=== PATIENT | male | born 1985 | race African-American/Black ===

== ENCOUNTER 2021-10-13 01:09 | Emergency (ER) | payer BC ==
[~2021-10-13] VITALS: Ht 185.4 cm; Wt 74.8 kg
[2021-10-13 01:14] VITALS: BP 140/77
--- NOTE | 2021-10-13 01:14 | NUR ---
TO BED AMBULATORY
--- NOTE | 2021-10-13 01:18 | NUR ---
[facility] in [facility] - 10/13/21 at 0118 by EMILY PT TAKEN TO BED 11
--- NOTE | 2021-10-13 01:19 | NUR ---
Dr. John examining patient.
[2021-10-13] MEDS ORDERED: ALBUTEROL SULFATE/IPRATROPIU 3 ML SOL IH ONE (01:30)
--- NOTE | 2021-10-13 01:31 | NUR ---
X-Ray at bedside.
--- NOTE | 2021-10-13 01:40 | NUR ---
Respiratory Therapist at bedside for respiratory intervention.
--- NOTE | 2021-10-13 01:43 | NUR ---
CHRISTOPHER WALKED OVER TO LAB AT THIS TIME
[2021-10-13] MEDS ORDERED: BENZ100C6 PO (02:27)
[2021-10-13] MEDS ORDERED: ALBU117P INH ×2 (02:27→10:50)
[2021-10-13] MEDS ORDERED: FLUT1DSK2 IH (02:27)
--- NOTE | 2021-10-13 02:32 | NUR ---
PATIENT CLEARED FOR DISHCARGE AT THIS TIME. ADVISED TO FOLLOW UP WITH PCP AND RETURN IF CODNITON WORSENS. NO OTHER COMPLAINTS OR CONCERNS AT THIS TIME FOLLOWINGF CRISTHIANHSAGNIESZKA MCCOYCREEING.
[2021-10-13 02:33] VITALS: BP 140/77
[2021-10-13] MEDS ORDERED: PRED20TA5 PO (10:50)
[2021-10-13] MEDS ORDERED: FLUT1DSK IH (10:50)
[2021-10-13] MEDS ORDERED: FLUT1POW3 IH (11:19)
[2021-10-14] MEDS ORDERED: BUPR-51 PO (03:45)
[2021-10-14] MEDS ORDERED: ALBU0.0912 IH (03:45)
[2021-10-14] MEDS ORDERED: ESCI20TA PO (03:45)
== END 2021-10-13 02:33 | disposition home or self-care (01) ==
LOC: MED 01:09
DX: J45.901 Unspecified asthma with (acute) exacerbation (principal); Z20.822 Contact with and (suspected) exposure to COVID-19; Z79.899 Other long term (current) drug therapy
CPT/HCPCS: 71045; 87426; 94640; 99284; Q0092

== ENCOUNTER 2021-10-13 10:36 | Emergency (ER) | payer BC ==
[~2021-10-13] VITALS: Ht 188 cm; Wt 64.9 kg
[~2021-10-13 10:36] MED LIST: ALBU117P INH; BENZ100C6 PO; FLUT1DSK2 IH
[2021-10-13 10:38] VITALS: BP 151/94
--- NOTE | 2021-10-13 10:38 | NUR ---
35 y/o Male BIB self for c/o SOB. Was here yesterday for the same issue and has been unable to refill his RX. Resp even and unlabored, wheezing noted upon auscultation. AOX4, able to make needs known. Denies N/V/D/CP. PmHx: Depression, asthma Home meds: Lexapro/wellbutrin, advair, albuterol
--- NOTE | 2021-10-13 10:40 | NUR ---
FRANCI Adames in triage to assess pt at this time
[2021-10-13] MEDS ORDERED: PRED20TA5 PO (10:50)
[2021-10-13] MEDS ORDERED: ALBUTEROL SULFATE/IPRATROPIU 3 ML SOL IH ONE ×2 (10:50→11:10)
[2021-10-13] MEDS ORDERED: FLUT1DSK IH (10:50)
[2021-10-13] MEDS ORDERED: predniSONE 20 MG TAB PO ONE (10:50)
[2021-10-13] MEDS ORDERED: ALBU117P INH (10:50)
--- NOTE | 2021-10-13 10:54 | NUR ---
RT BEDSIDE PROVIDING BREATHING TX
--- NOTE | 2021-10-13 10:54 | NUR ---
RT with pt to assess and give breathing tx.
[2021-10-13] MEDS ORDERED: FLUT1POW3 IH (11:19)
[2021-10-13 11:30] VITALS: BP 151/94
--- NOTE | 2021-10-13 11:30 | NUR ---
Patient discharged with v/s stable. Written and verbal after care instructions given and explained. Patient alert, oriented and verbalized understanding of instructions. Ambulatory with steady gait. All questions addressed prior to discharge. ID band removed. Patient advised to follow up with PMD. Rx of ALBUTEROL, ADVAIR, FLUTICASONE/VILANTEROL, AND PREDNISONE given. Patient educated on indication of medication including possible reaction and side effects. Opportunity to ask questions provided and answered.
[2021-10-14] MEDS ORDERED: ALBU0.0912 IH (03:45)
[2021-10-14] MEDS ORDERED: BUPR-51 PO (03:45)
[2021-10-14] MEDS ORDERED: ESCI20TA PO (03:45)
== END 2021-10-13 11:30 | disposition home or self-care (01) ==
LOC: MED 10:36
DX: J45.901 Unspecified asthma with (acute) exacerbation (principal); Z79.899 Other long term (current) drug therapy
CPT/HCPCS: 94640; 99284; J7512

== ENCOUNTER 2021-10-14 00:30 | Inpatient (IN) | payer BC, SELFPAY ==
[~2021-10-14] VITALS: Ht 185.4 cm; Wt 72.6 kg
[2021-10-14] MEDS: LEVALBUTEROL 1.25 MG/0.5 ML NEBU INH SCH ×3 (00:25→20:04)
[2021-10-14] MEDS: IPRATROPIUM 0.02% 0.5 MG/2.5 ML NEBU INH SCH ×2 (00:25→20:04)
[~2021-10-14 00:30] MED LIST changes: +FLUT1DSK IH; +FLUT1POW3 IH; +PRED20TA5 PO
[2021-10-14 00:39] VITALS: BP 113/77
[2021-10-14] MEDS ORDERED: ALBUTEROL SULFATE/IPRATROPIU 3 ML SOL IH ONE ×2 (00:47→00:50)
[2021-10-14] MEDS ORDERED: methylPREDNISolone SS 125 MG/2 ML VIAL IM ONE (00:50)
[2021-10-14] MEDS ORDERED: MAG SULF 2000 MG/WATER PREMIX 50 ML IV ONE (01:15)
[2021-10-14] MEDS ORDERED: NACL 0.9% 1,000 ML IV ONE (01:15)
[2021-10-14] MEDS ORDERED: IBUPROFEN 800 MG TAB PO ONE (01:15)
[2021-10-14 02:37] LABS: BASOPHILS % (AUTO) 0.3 % (0.0-2.0); EOSINOPHILS % (AUTO) 0.2 % (0.0-4.0); HEMATOCRIT 43.1 % (36-52); HEMOGLOBIN 14.7 g/dL (12.0-18.0); LYMPHOCYTES # (AUTO) 0.2 K/uL (2.0-11.5); LYMPHOCYTES % (AUTO) 2.6 % (20.5-51.1); MEAN CORPUSCULAR HEMOGLOBIN 31 pg (27-31); MEAN CORPUSCULAR HGB CONC 34 g/dL (33-37); MONOCYTES # (AUTO) 0.2 K/uL (0.8-1.0); MONOCYTES % (AUTO) 2.4 % (1.7-9.3); NEUTROPHILS % (AUTO) 94.5 % (42.2-75.2); PLATELET COUNT (AUTO) 179 K/uL (140-450); RED BLOOD CELL COUNT(AUTO) 4.79 MIL/uL (4.20-6.10); RED CELL DISTRIBUTION WIDTH 13.1 % (11.6-13.7); WHITE BLOOD COUNT (AUTO) 9.6 K/uL (4.8-10.8)
[2021-10-14 03:09] LABS: ALBUMIN 3.9 g/dL (3.4-5.0); CARBON DIOXIDE 22.5 mmol/L (21-32); POTASSIUM 3.5 mmol/L (3.5-5.1); TOTAL BILIRUBIN 0.6 mg/dL (0.0-1.0)
[2021-10-14] MEDS ORDERED: BUPR-51 PO (03:45)
[2021-10-14] MEDS ORDERED: ESCI20TA PO (03:45)
[2021-10-14] MEDS ORDERED: ALBU0.0912 IH (03:45)
[2021-10-14 04:20] VITALS: BP 107/59
[2021-10-14] MEDS: ALBUTEROL SULFATE/IPRATROPIU 3 ML SOL IH SCH ×2 (07:27→11:30)
[2021-10-14 08:00] VITALS: BP 132/68
[2021-10-14] MEDS ORDERED: DOCUSATE SODIUM 100 MG GELCAP PO PRN (08:35)
[2021-10-14] MEDS ORDERED: MORPHINE SULFATE 2 MG/ML SYR IVP PRN (08:35)
[2021-10-14] MEDS ORDERED: MAG SULF 2000 MG/WATER PREMIX 50 ML IV PRN (08:35)
[2021-10-14] MEDS: NACL 0.9% 1,000 ML IV SCH (08:35)
[2021-10-14] MEDS ORDERED: ZOLPIDEM 5 MG TAB PO PRN (08:35)
[2021-10-14] MEDS ORDERED: ONDANSETRON 4 MG/2 ML VIAL IM/IVP PRN (08:35)
[2021-10-14] MEDS ORDERED: LORazepam 2 MG/ML VIAL IM/IVP PRN (08:35)
[2021-10-14] MEDS ORDERED: POTASSIUM CHLORIDE 10 MEQ TABER PO PRN (08:35)
[2021-10-14] MEDS ORDERED: HYDROcodone/APAP 5/325 MG 1 TAB TAB PO PRN (08:35)
[2021-10-14] MEDS ORDERED: ACETAMINOPHEN 325 MG TAB PO PRN (08:35)
[2021-10-14] MEDS ORDERED: methylPREDNISolone SS 40 MG/ML VIAL IVP SCH (09:00)
[2021-10-14 09:44] LABS: PROTHROMBIN TIME 10.8 secs (10.8-13.4)
[2021-10-14] MEDS: methylPREDNISolone SS 40 MG/ML VIAL IVP SCH ×3 (09:53→20:31)
[2021-10-14 09:54] LABS: CHOL/HDL RATIO 3.2 (1-4.5); THYROID STIMULATING HORMONE 0.69 uIU/mL (0.34-3.74)
[2021-10-14 12:00] VITALS: BP 121/65
[2021-10-14] MEDS ORDERED: LEVALBUTEROL 1.25 MG/0.5 ML NEBU INH ONE (15:26)
[2021-10-14 16:00] VITALS: BP 121/65
[2021-10-14 20:00] VITALS: BP 144/86
[2021-10-15] VITALS (7 sets, daily range): BP systolic 116–131; BP diastolic 56–85
[2021-10-15] MEDS: NACL 0.9% 1,000 ML IV SCH ×2 (01:15→02:43)
[2021-10-15] MEDS: LEVALBUTEROL 1.25 MG/0.5 ML NEBU INH SCH ×7 (04:19→23:00)
[2021-10-15] MEDS: IPRATROPIUM 0.02% 0.5 MG/2.5 ML NEBU INH SCH ×7 (04:19→23:00)
[2021-10-15 07:00] LABS: BASOPHILS % (AUTO) 0.1 % (0.0-2.0); HEMATOCRIT 40.5 % (36-52); HEMOGLOBIN 13.6 g/dL (12.0-18.0); LYMPHOCYTES # (AUTO) 0.8 K/uL (2.0-11.5); LYMPHOCYTES % (AUTO) 5.5 % (20.5-51.1); MEAN CORPUSCULAR HEMOGLOBIN 30 pg (27-31); MEAN CORPUSCULAR HGB CONC 34 g/dL (33-37); MEAN CORPUSCULAR VOLUME 89.6 fL (80-94); MONOCYTES # (AUTO) 0.9 K/uL (0.8-1.0); MONOCYTES % (AUTO) 5.8 % (1.7-9.3); NEUTROPHILS # (AUTO) 13.1 K/uL (1.8-7.7); NEUTROPHILS % (AUTO) 88.6 % (42.2-75.2); PLATELET COUNT (AUTO) 185 K/uL (140-450); RED BLOOD CELL COUNT(AUTO) 4.52 MIL/uL (4.20-6.10); RED CELL DISTRIBUTION WIDTH 13.5 % (11.6-13.7); WHITE BLOOD COUNT (AUTO) 14.8 K/uL (4.8-10.8)
[2021-10-15 07:09] LABS: T4 (THYROXINE) 7.6 ug/dL (4.5-12.0)
[2021-10-15 07:25] LABS: MAGNESIUM 2.1 mg/dL (1.8-2.4)
[2021-10-15 08:37] LABS: ANION GAP 14.7 (8-16); CARBON DIOXIDE 24.1 mmol/L (21-32); CREATININE 0.9 mg/dL (0.6-1.3); POTASSIUM 3.8 mmol/L (3.5-5.1)
[2021-10-15] MEDS ORDERED: buPROPion 75 MG TAB PO SCH (09:00)
[2021-10-15] MEDS: ESCITALOPRAM 20 MG TAB PO SCH (09:24)
[2021-10-15] MEDS: methylPREDNISolone SS 40 MG/ML VIAL IVP SCH ×2 (12:31→20:52)
[2021-10-15 15:08] LABS: APPEARANCE,URINE CLEAR (CLEAR); BILIRUBIN,URINE NEGATIVE (NEGATIVE); BLOOD, URINE NEGATIVE (NEGATIVE); COLOR,URINE YELLOW (YELLOW); LEUKOCYTE ESTERASE ,URINE NEGATIVE (NEGATIVE); NITRITE, URINE NEGATIVE (NEGATIVE); UGLUCOSE NEGATIVE (NEGATIVE)
[2021-10-15 16:13] LABS: BARBITURATE, URINE NEGATIVE ng/ml (NEG <=200); BENZODIAZEPINE, URINE NEGATIVE ng/mL (NEG <=200); CANNABINOID, URINE POSITIVE ng/mL (NEG <=50); COCAINE, URINE NEGATIVE ng/mL (NEG <=300); OPIATE, URINE NEGATIVE ng/mL (NEG <=2000); PHENCYCLIDINE SCREEN,URINE NEGATIVE ng/mL (NEG <=25)
[2021-10-15] MEDS: buPROPion 100 MG TAB PO SCH (20:53)
[2021-10-16] VITALS: BP 133/68
[2021-10-16] MEDS: NACL 0.9% 1,000 ML IV SCH (02:25)
[2021-10-16] MEDS: IPRATROPIUM 0.02% 0.5 MG/2.5 ML NEBU INH SCH ×3 (03:00→11:49)
[2021-10-16] MEDS: LEVALBUTEROL 1.25 MG/0.5 ML NEBU INH SCH ×3 (03:00→11:50)
[2021-10-16 04:00] VITALS: BP 111/50
[2021-10-16] MEDS: methylPREDNISolone SS 40 MG/ML VIAL IVP SCH ×2 (05:27→13:00)
[2021-10-16 06:12] LABS: HEMOGLOBIN 13.6 g/dL (12.0-18.0); LYMPHOCYTES # (AUTO) 0.9 K/uL (2.0-11.5); LYMPHOCYTES % (AUTO) 9.4 % (20.5-51.1); MEAN CORPUSCULAR HEMOGLOBIN 30 pg (27-31); MEAN CORPUSCULAR HGB CONC 34 g/dL (33-37); MEAN CORPUSCULAR VOLUME 89.5 fL (80-94); MONOCYTES # (AUTO) 0.5 K/uL (0.8-1.0); MONOCYTES % (AUTO) 5.7 % (1.7-9.3); NEUTROPHILS # (AUTO) 7.8 K/uL (1.8-7.7); NEUTROPHILS % (AUTO) 84.9 % (42.2-75.2); PLATELET COUNT (AUTO) 170 K/uL (140-450); RED BLOOD CELL COUNT(AUTO) 4.46 MIL/uL (4.20-6.10); RED CELL DISTRIBUTION WIDTH 13.7 % (11.6-13.7); WHITE BLOOD COUNT (AUTO) 9.2 K/uL (4.8-10.8)
[2021-10-16 07:07] LABS: ANION GAP 11.5 (8-16); CARBON DIOXIDE 26.6 mmol/L (21-32); CREATININE 0.8 mg/dL (0.6-1.3); POTASSIUM 4.1 mmol/L (3.5-5.1)
[2021-10-16 07:17] LABS: MAGNESIUM 2.2 mg/dL (1.8-2.4); PHOSPHORUS 5.9 mg/dL (2.5-4.9)
[2021-10-16 08:00] VITALS: BP 121/78
[2021-10-16] MEDS: buPROPion 100 MG TAB PO SCH (08:47)
[2021-10-16] MEDS: ESCITALOPRAM 20 MG TAB PO SCH (08:47)
[2021-10-16] MEDS ORDERED: ESCITALOPRAM 20 MG TAB PO SCH (09:00)
[2021-10-16 11:09] VITALS: BP 121/78
[2021-10-16] MEDS ORDERED: FLUT1DSK2 IH (11:58)
[2021-10-16] MEDS ORDERED: ALBU0.0912 IH (11:58)
[2021-10-16] MEDS ORDERED: PRED20TA5 PO (11:59)
== END 2021-10-16 13:25 | disposition home or self-care (01) | DRG 203 ==
LOC: MED 00:30 → MTU 04:00
PROVIDERS: ADMIT Student in an Organized Health Care Education/Training Program; ATTEND Student in an Organized Health Care Education/Training Program
DX: J45.901 Unspecified asthma with (acute) exacerbation (principal); I10 Essential (primary) hypertension; F12.20 Cannabis dependence, uncomplicated; F32.A Depression, unspecified; Z20.822 Contact with and (suspected) exposure to COVID-19; E78.5 Hyperlipidemia, unspecified; E83.39 Other disorders of phosphorus metabolism; U09.9 Post COVID-19 condition, unspecified; Z79.899 Other long term (current) drug therapy; Z79.52 Long term (current) use of systemic steroids; Z71.51 Drug abuse counseling and surveillance of drug abuser
CPT/HCPCS: 36415; 71045; 71275; 80048; 80053; 80305; 81003; 82150; 83036; 83690; 83735; 83880; 84100; 84134; 84436; 84443; 85025; 85379; 85610; 85730; 87081; 94640; 96365; 96366; 96372; 99285; J1644; J2920; J2930; J3475; J7612; J7644; Q0092; Q9967